=== PATIENT | male | born 2000 | race Caucasian/White ===

== ENCOUNTER 2025-02-08 19:18 | Emergency (ER) | payer OTHER, SELFPAY ==
[2025-02-08 19:23] VITALS: BP 138/86
[2025-02-08 19:37] LABS: Hematocrit 45.2 % (39.0-52.0); Hemoglobin 15.5 g/dL (13.0-18.0); Mean Corp Hgb Conc. 34.3 g/dL (33.0-37.0); Mean Corpuscular Volume 86.1 fL (80.0-94.0); Nucleated Red Blood Cells % 0 % (-); Platelet Count 244 10^3/uL (130-400); Red Cell Dist. Width 12.6 % (11.5-14.5)
[2025-02-08 19:54] LABS: ALT (SGPT) 77 U/L (0-50); AST (SGOT) 56 U/L (17-59); Albumin 5.0 g/dl (3.5-5.0); Alkaline Phosphatase 95 U/L (38-126); Blood Urea Nitrogen 15 mg/dl (9-20); Calcium 9.6 mg/dl (8.4-10.2); Carbon Dioxide 29 mmol/L (22-30); Chloride 103 mmol/L (98-107); Glucose 101 mg/dl (70-99); Potassium 4.2 mmol/L (3.5-5.1); Sodium 138 mmol/L (135-145); Total Protein 8.3 g/dl (6.3-8.2); eGFR > 60.00
[2025-02-08 20:11] LABS: Troponin I < 0.012 ng/ml
[2025-02-08 21:03] VITALS: BP 129/82
[2025-02-08 21:39] VITALS: BMI 32.3
--- NOTE | 2025-02-08 22:27 | ED.GENMED ---
History of Present Illness
General
Chief Complaint: Chest Pain
Source: patient
Exam Limitations: none
Time Seen by Provider: 02/08/25 21:44
Nursing documentation reviewed up to this point in time: agreed with
History of Present Illness
History of Present Illness:
Patient is a 24-year-old male with history anxiety who presents to the emergency department for evaluation of right sided chest discomfort. Patient states he has been dealing with frequent right sided chest pain since August. It seems to come and go
however was acutely exacerbated after working out in the gym recently. Pain seems worse with stretching of his chest. He denies any clear component to exertional activities or pleuritic component.
In addition, patient has been struggling with anxiety and panic attacks. These have been occurring for the past few years. He was started on an antidepressant medication by his primary care provider however did not like the way it made him feel
and stopped taking it. His panic attack and anxiety typically are worse after a night of drinking. Today, he has felt extremely anxious and had an episode earlier today where symptoms became severe causing a worsening tightness in his chest
prompting visit to the emergency department.
Patient denies any suicidal or homicidal ideations. No recent travel or recent surgeries. No personal or family history of blood/clotting disorders. No fever, chills, or pain/swelling in lower extremities. No episodes of syncope.
Past History
Past History
ED Past Medical History: Other (Syncope)
ED Past Surgical History: None
Social History
Tobacco: Non-smoker
Alcohol: None
Drug: None
Personal: Single
Living: with family
Employment: Employed
Review of Systems
Review of Systems
Allergies reviewed?: Yes
All Other Systems: ROS reviewed and negative except as documented in HPI and ROS
Phy Exam
Physical Exam
Physical Exam:
Vitals: Hypertensive, otherwise vital signs stable. Afebrile
General: Patient is very anxious appearing.
Skin: Warm and dry, no rashes or lesions
Head: Normocephalic, atraumatic
Eyes: Sclera nonicteric.
Throat: Protecting airway
Neck: Normal ROM, no cervical spine tenderness, no meningismus
Cardiac: Regular rate and rhythm, no murmurs. Focal area of reproducible tenderness in right mid chest wall. No rash or overlying skin changes. 2+ palpable radial pulses bilaterally
Pulm: Normal respiratory effort. Lungs clear bilaterally
Abdomen: No abdominal tenderness.
Extremities: No evidence of cyanosis or edema.
Neuro: AAOx3. Grossly intact.
Psychiatric: Anxious. No SI or HI.
Scores
Heart Score for Chest Pain Patients
STEMI patient?: Not applicable
Course
Orders/Labs/Results
Orders:
Orders
02/08/25 19:18
ECG [Electrocardiogram (*1)] Urgent
Reason for Study: Chest Pain
EKG- Treatment ONCE
02/08/25 19:31
Complete Blood Count/With Diff Urgent
Comprehensive Metabolic Panel Urgent
TSH Reflex To Free T4 Urgent
Comment: ADD ON
Troponin I Urgent
02/08/25 22:11
Crisis Consult Urgent
Reason for Consult: Anxiety
Ketorolac [Toradol] 15 mg IV NOW STA
02/08/25 22:12
Electrocardiogram (*1) Urgent
Reason for Study: Chest Pain
EKG- Treatment ONCE
CR Chest - 2 Views Urgent
Comment:
Reason For Exam: Right sided chest pain
02/08/25 22:28
Add On- LAB Urgent
Tests Added?: TSH w/ reflex to T4
02/08/25 22:33
Troponin I Urgent
02/08/25 23:30
HydrOXYZINE [Atarax] 25 mg PO NOW STA
Abnormal Lab Results
02/08/25
19:31
WBC 11.9 H 10^3/uL
(4.8-10.8)
Absolute Neuts (auto) 8.4 H 10^3/uL
(1.4-6.5)
Absolute Monos (auto) 1.0 H 10^3/uL
(0.1-0.6)
Lymphocytes % 19.4 L %
(20.5-51.1)
Glucose 101 H mg/dl
(70-99)
ALT 77 H U/L
(0-50)
Total Protein 8.3 H g/dl
(6.3-8.2)
02/08/25 19:31
02/08/25 19:31
Vital Signs
Initial and Last Documented VS:
Initial Vital Signs
Pulse Resp BP Pulse Ox
98 16 138/86 99
02/08/25 19:23 02/08/25 19:23 02/08/25 19:23 02/08/25 19:23
Last Documented Vital Signs
Temp Pulse Resp BP Pulse Ox
98.3 F 58 21 125/63 98
02/08/25 21:44 02/08/25 23:30 02/08/25 23:30 02/08/25 22:57 02/08/25 23:00
MDM/Problems Addressed
Differential Diagnosis Includes:
Not limited to: Costochondritis, pleurisy, muscle strain, panic attack, anxiety, less likely acute coronary syndrome, etc.
MDM/Problems Addressed:
24-year-old male with approximately five months of intermittent right chest discomfort, as well as panic attacks. No exertional or pleuritic component to chest tightness. Symptoms seem worse with certain positions and chest stretching. Panic attacks
without clear trigger although have been occurring for many years. No SI or HI.
Vitals stable. On exam, patient appears very anxious. He does have an area of reproducible tenderness in right mid chest without overlying skin changes. Otherwise cardio/pulmonary assessment unremarkable. He is neurologically intact.
Basic labs sent prior to my evaluation without clinically significant abnormalities. Initial EKG shows no evidence of acute ischemia or arrhythmia. Undetectable troponin.
Patient does appear to be struggling with panic attack/significant anxiety. While this may be contributing to chest discomfort/other symptoms, with reproducible tenderness and positional component, possibly underlying muscular etiology. Will trend
troponin to rule out acute coronary syndrome, which I feel is very unlikely. Patient is PERC negative, do not suspect PE.
Patient not suicidal or homicidal, however, I did have crisis evaluate patient at bedside who were able to provide multiple outpatient resources.
Repeat troponin undetectable. Chest x-ray fine. He did have some improvement in discomfort following Toradol. He appears much more relaxed and not as anxious as he was on arrival.
Fortunately, no evidence of acute cardiac process today. I do not feel patient is a harm to themselves or others.
Will discharge with prescription for hydroxyzine as needed for insomnia/anxiety and advise outpatient follow up with therapist and primary care. He likely will benefit from daily anti-anxiety medication, such as SSRI.
Patient and patient�s family are comfortable with plan and stable for discharge home. Strict return precautions discussed.
Chronic conditions affecting care:
Anxiety
Acute Exacerbation and/or Progression of Chronic Illness:
N/A
*Radiology
Radiology exam reviewed: preliminary read by ED provider (CXR reviewed by me - no acute abnormalities)
*Pulse Oximetry
SaO2: 100
Oxygen Mode of Delivery: Room air
Patient hypoxic: no
*EKG
Interpreted by ED Provider?: Yes
EKG Intrepretation Date: 02/08/25
Interpretation: normal
Comparison EKG: no changes
Heart Rate: 76
Rate: normal
Rhythm: sinus arrhythmia
[place]: normal axis
Interval: normal QT interval
QRS Pattern: normal QRS
Ischemia: no ischemia
*Phys Assistant Interpretation
Rate: normal
Interpretation: normal
Heart Rate: 62
Rhythm: sinus
*Critical Care Note
Total Time (30-74mins, 75-104mins- exclusive of procedures): Not Applicable
ED Attending Note
-
Portions of this chart may have been created with voice recognition software.� Occasional wrong word or��sound alike� substitutions may have occurred due to the inherent limitations of voice recognition software.
Discharge Plan
Departure
Patient Disposition: Home (Routine Discharge)
Date of Disposition: 02/08/25
Time of Disposition: 23:31
Patient with high blood pressure during this ER visit?: Yes
Condition: Good
Discharge Problem:
Chest pain, Anxiety
Instructions: Chest pain (DC), Anxiety in adults - ED (DC), BLOOD PRESSURE
Prescriptions:
New
hydroxyzine HCl 25 mg tablet
25 mg PO HS PRN (Reason: anxiety) Qty: 10 0RF
Referrals:
Efe Anderson MD [Family Provider, Internal Medicine] - Follow up in 5-7 days
Activity Restrictions/Additional Instructions:
RETURN TO THE EMERGENCY DEPARTMENT ANY CHEST PAIN, SHORTNESS OF BREATH, PERSISTENT ANXIETY/PANIC ATTACKS, THOUGHTS OF HARMING YOURSELF OR OTHERS, WORSENING OF CURRENT SYMPTOMS, OR ANY OTHER CONCERNS
- As discussed, your cardiac enzymes were negative in the emergency department. Your chest x-ray showed no acute findings. Your chest discomfort may be musculoskeletal. Please take Tylenol and/or Motrin as needed for discomfort and limit
activities that further aggravate your pain
- Your ALT, which is a liver enzyme, was mildly elevated. Please have this repeated with your primary care provider to ensure it trends down.
- You were provided multiple resources by our crisis department to help you find outpatient support for your mental health.
- A prescription for hydroxyzine engines at your pharmacy. Please take this nightly as needed for anxiety.
- Follow-up with primary care for further evaluation/management and to ensure that your symptoms are improving
Monitor your symptoms closely and return to the emergency department with any acute worsening/new symptoms or any other concerns
Interventions
Interventions:
*Risk Screen - Suicide Last Done: 02/08/25 21:11
*General Assessment Last Done: 02/08/25 21:39
*Neglect/Abuse Screening Last Done: 02/08/25 21:11
*ED- Fall Risk Assessment Last Done: 02/08/25 21:11
*ED COVID-19 Vaccine History Last Done: 02/08/25 21:11
*ED Influenza Vaccine History Last Done: 02/08/25 21:11
*Nursing Disposition Last Done: 02/08/25 23:43
ED- Cardiac Assessment Last Done: 02/08/25 21:40
Discharge Date and Time
Discharge Date/Time: 02/08/25 23:44
Print Language: PERSIAN
[2025-02-08] MEDS: TORADOL 15 MG IV (22:32)
[2025-02-08 22:57] VITALS: BP 125/63
[2025-02-08 23:02] LABS: Troponin I < 0.012 ng/ml
[2025-02-08] MEDS: ATARAX 25 MG PO (23:36)
== END 2025-02-08 23:44 | disposition home or self-care (01) ==
LOC: EMR 19:18
PROVIDERS: Physician Assistant; Student in an Organized Health Care Education/Training Program; EMERGENCY PHYSICIAN Student in an Organized Health Care Education/Training Program; FAMILY PHYSICIAN Internal Medicine
DX: R07.9 Chest pain, unspecified (principal); F41.9 Anxiety disorder, unspecified; I49.8 Other specified cardiac arrhythmias; R03.0 Elevated blood-pressure reading, without diagnosis of hypertension; F41.0 Panic disorder [episodic paroxysmal anxiety]; T43.206A Underdosing of unspecified antidepressants, initial encounter; Z91.128 Patient's intentional underdosing of medication regimen for other reason
CPT/HCPCS: 99284; 96374; 71046; 80053; 84443; 84484; 85025; 93005